=== PATIENT | female | born 1985 | race Caucasian/White ===

== ENCOUNTER 2016-07-18 21:06 | Inpatient (IN) | payer MEDICARE, MEDICAID ==
[~2016-07-18 21:06] MED LIST: BENTYL-DPS10 MG PO; CATAPRES0.3 MG PO; DELTASONE DPS10 MG PO; DULERA 200/58.8 GM IH; ELAVIL-DPS100 MG PO; KLOR-CON M2020 ME1 PO; LEVAQUIN DPS750 MG PO; LYRICA50 MG PO; MAXZIDE-25 DPS1 TAB PO; MS CONTIN DPS15 MG PO; PRILOSEC DPS20 MG PO; PROAIR RESPICL90 MCG PO; SYMBICORT160 MCG/6 IH; TEMOVATE O.05%15 GM TP; TYLENOL DPS325 MG PO; VITAMIN D1000 UNIT PO; XOPENEX CO1.25 MG/0. IH; ZANAFLEX4 MG PO
[2016-07-30] MEDS ORDERED: PROTONIX40 MG PO (06:23)
[2016-07-30] MEDS ORDERED: GLUCOPHAGE-DPS500 MG PO (06:24)
[2016-07-30] MEDS ORDERED: LATUDA80 MG PO (06:24)
[2016-07-30] MEDS ORDERED: COLACE-DPS100 MG PO (06:25)
[2016-07-30] MEDS ORDERED: HYDROXYZINE PAM25 MG PO (06:26)
[2016-07-30] MEDS ORDERED: VERAPAMIL ER240 MG PO (06:27)
[2016-07-30] MEDS ORDERED: VIBERZI75 MG PO (06:28)
[2016-07-30] MEDS ORDERED: NORCO 5-325 TA1 EACH PO (06:28)
[2016-07-30] MEDS ORDERED: DUONEB DPS3 ML IH (06:30)
[2016-07-30] MEDS ORDERED: HABITROL DPS21 MG TD (06:31)
== END 2016-07-29 12:03 | disposition home or self-care (01) | DRG 870 ==
DX: A41.9 Sepsis, unspecified organism (principal); J96.21 Acute and chronic respiratory failure with hypoxia; J18.9 Pneumonia, unspecified organism; Z23 Encounter for immunization; E44.0 Moderate protein-calorie malnutrition; Z68.42 Body mass index [BMI] 45.0-49.9, adult; J45.41 Moderate persistent asthma with (acute) exacerbation; E66.01 Morbid (severe) obesity due to excess calories; R65.20 Severe sepsis without septic shock; R13.10 Dysphagia, unspecified; D64.9 Anemia, unspecified; J98.09 Other diseases of bronchus, not elsewhere classified; R00.0 Tachycardia, unspecified; F31.9 Bipolar disorder, unspecified; G89.29 Other chronic pain; E28.2 Polycystic ovarian syndrome; K58.9 Irritable bowel syndrome, unspecified; M19.90 Unspecified osteoarthritis, unspecified site; F17.210 Nicotine dependence, cigarettes, uncomplicated; G47.33 Obstructive sleep apnea (adult) (pediatric); F43.10 Post-traumatic stress disorder, unspecified; R73.9 Hyperglycemia, unspecified; T38.0X5A Adverse effect of glucocorticoids and synthetic analogues, initial encounter

== ENCOUNTER 2016-11-27 18:01 | Emergency (ER) | payer MEDICARE, MEDICAID ==
[~2016-11-27 18:01] MED LIST changes: +COLACE-DPS100 MG PO; +DUONEB DPS3 ML IH; +GLUCOPHAGE-DPS500 MG PO; +HABITROL DPS21 MG TD; +HYDROXYZINE PAM25 MG PO; +LATUDA80 MG PO; +NORCO 5-325 TA1 EACH PO; +PROTONIX40 MG PO; +VERAPAMIL ER240 MG PO; +VIBERZI75 MG PO
--- NOTE | 2016-12-11 15:17 | ER ---
ADMIT: 11/27/2016 RM/LOC: ER [facility] MR#: [id number] [address] [id number] [place] [facility] [address] [place] [address] Emergency Room Report SEX: F AGE: 31 : 1985 DATE: 11/27/2016 ADDENDUM: CHIEF COMPLAINT: Left eye pain. Overall findings, she does have a corneal abrasion. I did discharge her home, erythromycin ointment, told her to follow up with Dr. Jean in the next day if she does not have any improvement. CATERINA Akhtar / Jayme Howard MD / mendell JOB #: [id number] CC: Jayme Howard MD, Attending Physician Micheline Jean MD, Family Physician
== END 2016-11-27 19:19 | disposition home or self-care (01) ==
LOC: ER 18:01
DX: S05.02XA Injury of conjunctiva and corneal abrasion without foreign body, left eye, initial encounter (principal); F31.9 Bipolar disorder, unspecified; F17.210 Nicotine dependence, cigarettes, uncomplicated; Z79.899 Other long term (current) drug therapy; Z88.5 Allergy status to narcotic agent; X58.XXXA Exposure to other specified factors, initial encounter